=== PATIENT | female | born 1990 | race African-American/Black ===

== ENCOUNTER → 2016-11-22 | Outpatient (CLI) | payer OTHER ==
[2016-11-22 14:06] LABS: ALBUMIN 3.8 GM/DL (3.2-5.2); ALBUMIN/GLOBULIN RATIO 1.09 (1.00-1.93); ALKALINE PHOSPHATASE 53 U/L (45-117); ALT/SGPT 17 U/L (12-78); ANION GAP 10 MEQ/L (8-16); AST/SGOT 11 U/L (15-37); BILIRUBIN,TOTAL 0.5 MG/DL (0.2-1.0); BLOOD UREA NITROGEN 10 MG/DL (7-18); CALCIUM LEVEL 9.5 MG/DL (8.5-10.1); CARBON DIOXIDE LEVEL 26 MEQ/L (21-32); CHLORIDE LEVEL 105 MEQ/L (98-107); CREATININE FOR GFR 0.74 MG/DL (0.55-1.02); GLOMERULAR FILTRATION RATE > 60.0 (>60); GLUCOSE, FASTING 83 MG/DL (70-105); POTASSIUM SERUM 4.6 MEQ/L (3.5-5.1); SODIUM LEVEL 141 MEQ/L (136-145); TOTAL PROTEIN 7.3 GM/DL (6.4-8.2)
[2016-11-22 14:25] LABS: LUTEINIZING HORMONE 2.4 mIU/mL; PROLACTIN 5.3 NG/ML
[2016-11-22 14:27] LABS: FOLLICLE STIMULATING HORMONE 1.7 mIU/mL
== END ==
LOC: M LAB 12:34
PROVIDERS: ATTEND Family Medicine
DX: E28.2 Polycystic ovarian syndrome (principal)

== ENCOUNTER → 2017-05-18 | Outpatient (CLI) | payer OTHER ==
[~2017-05-18] MED LIST: ISOVUE-370 76% 100ML VIAL (Q9967) As Ordered ONE; TRIN1TAB2 PO
--- NOTE | 2017-05-18 13:44 | REP ---
CT IAC WITHOUT CONTRAST: HISTORY: Right pulsatile tinnitus. The internal auditory canals, cochlea, vestibules and semicircular canals are normal in appearance. The ossicles are normal in configuration and position. The scutum and tegmen are intact. The middle ear cavities and mastoid air cells are clear. Minimal mucosal thickening is present in the left ethmoid sinus. The visualized nasopharynx is normal in appearance. IMPRESSION: Normal CT IACs. Signed by Floyd Landrum MD 05/18/2017 01:47 P
== END ==
LOC: M RAD 12:53
PROVIDERS: ATTEND Otolaryngology
DX: H93.A1 Pulsatile tinnitus, right ear (principal)

== ENCOUNTER → 2017-06-07 | Outpatient (CLI) | payer OTHER ==
[~2017-06-07] MED LIST changes: -ISOVUE-370 76% 100ML VIAL (Q9967) As Ordered ONE
--- NOTE | 2017-06-08 08:35 | REP ---
MRI BRAIN WITHOUT AND WITH CONTRAST: HISTORY: Tinnitus. CONTRAST: ProHance 19 mL. There are no areas of abnormal signal intensity in the brain. There is no intraparenchymal hemorrhage, infarct, mass or midline shift. There is no abnormal enhancement. The ventricular system is normal in appearance. There is no extracerebral collection. There is no cerebellopontine angle mass. The inner ear structures are normal in appearance. The mastoid air cells and sinuses are clear. IMPRESSION: There is no intracranial lesion. Signed by Floyd Landrum MD 06/08/2017 08:39 A
== END ==
LOC: M RAD 06-06 08:14
PROVIDERS: ATTEND Otolaryngology
DX: H93.A1 Pulsatile tinnitus, right ear (principal)
CPT/HCPCS: 70553; A9576

== ENCOUNTER 2017-07-13 08:39 | Day surgery (SDC) | payer OTHER ==
[~2017-07-13] VITALS: Ht 167.6 cm; Wt 99.3 kg
[~2017-07-13 08:39] MED LIST changes: +CIPRODEX OTIC SUSP 7.5ML As Ordered ONE
[2017-07-13] MEDS ORDERED: dexameTHASONE 4 MG/ML 1ML VIAL (J1100) IV ONE (09:00)
[2017-07-13] MEDS ORDERED: LR 1,000 ML IV SCH ×3 (09:00→11:45)
[2017-07-13 09:39] LABS: CONTROL LINE UCG INT CTR LINE PRESENT
[2017-07-13] MEDS ORDERED: PHENYLEPHRINE 0.5% NASAL SPRAY 15 ML As Ordered ONE (10:14)
[2017-07-13] MEDS ORDERED: MIDAZOLAM INJ 2 MG/2 ML VIAL (J2250) As Ordered ONE (10:42)
[2017-07-13] MEDS ORDERED: PHENYLephrine HCL 500 MCG/5 ML (100MCG/ML) SYRINGE (J2370) As Ordered ONE (10:43)
[2017-07-13] MEDS ORDERED: fentaNYL 100 MCG/2 ML INJECTION (J3010) As Ordered ONE (10:44)
[2017-07-13] MEDS ORDERED: ONDANSETRON 4MG/2ML VIAL (J2405) As Ordered ONE (10:51)
[2017-07-13] MEDS ORDERED: LIDOCAINE 2% INJ 100 MG/5 ML SDV (FOR ANES.) As Ordered ONE (10:51)
[2017-07-13] MEDS ORDERED: PROPOFOL 200 MG/20 ML VIAL As Ordered ONE (10:51)
[2017-07-13] MEDS ORDERED: HYDROmorphone HCL 2 MG/ML 1ML VIAL (J1170) As Ordered ONE (10:57)
[2017-07-13] MEDS ORDERED: fentaNYL 100 MCG/2 ML INJECTION (J3010) IV PRN (11:45)
[2017-07-13] MEDS ORDERED: ONDANSETRON 4MG/2ML VIAL (J2405) IV PRN (11:45)
[2017-07-13] MEDS ORDERED: HYDROmorphone HCL 1 MG/ML SYRINGE (J1170) IV PRN (11:45)
[2017-07-13] MEDS: PERCOCET 5MG/325MG TAB PO PRN ×2 (11:46→12:24)
[2017-07-13] MEDS ORDERED: KETOROLAC 30 MG/ML VIAL (J1885) As Ordered ONE (13:20)
[2017-07-13] MEDS ORDERED: KETOROLAC 30 MG/ML VIAL (J1885) IV ONE (13:20)
[2017-07-13 14:32] VITALS: BP 128/73
--- NOTE | 2017-08-03 13:59 | RO ---
DATE OF PROCEDURE: 07/13/2017 PREOPERATIVE DIAGNOSES: Eustachian tube dysfunction and adenotonsillar hypertrophy. POSTOPERATIVE DIAGNOSES: Eustachian tube dysfunction and adenotonsillar hypertrophy. PROCEDURE PERFORMED: Right tympanostomy and adenoidectomy. SURGEON: Martin Rosas MD CHIEF II DISPATCHER: ANESTHESIA: General. CLINICAL PREAMBLE: This 26-year-old woman presented to the office with history of chronic right aural fullness for more than 3 months. She was also complaining of pulsatile tinnitus. Flexible nasal endoscopy revealed adenoid hypertrophy. Management options including right tympanostomy tube placement as well as adenoidectomy have been discussed. The patient understood and consented to the procedure. DESCRIPTION OF PROCEDURE: Patient was identified in preoperative holding and brought to the operating room in stable condition. The right ear was marked in the preoperative holding area. Laid in supine position on the operating table, the patient received general anesthesia followed by orotracheal intubation without incident. Patient was prepped and draped in the usual fashion for the procedure. The patient's head was turned to the left side to expose the right ear. Ear speculum was inserted, and cerumen was debrided. The right tympanic membrane was visualized and found to be intact and mildly retracted. Myringotomy incision was made over the anterior inferior quadrant of the tympanic membrane. Right middle ear cleft was suctioned. A 7 mm straight shank tympanotomy tube was inserted. Ciprodex drops were instilled, and a cotton ball was used to occlude the ear canal. At this time, the patient was prepped and draped in the usual fashion for the adenoidectomy. The Paola-Graham mouth gag was inserted and suspended. The red rubber catheter was inserted via the right naris to retract the soft palate. Using a mirror, the hypertrophic adenoid tissue was visualized. Using the Coblator wand set at 7 for Coblation and 3 for coagulation, the hypertrophic adenoid tissue was ablated. Hemostasis was achieved. At the end of the procedure, sponge and instrument counts were correct. No complication was encountered. Estimated blood loss was less than 5 mL. General anesthesia was reversed, and patient was extubated and brought to the recovery room in stable condition. [facility] CENTERGustavo
== END 2017-07-13 14:45 | disposition home or self-care (01) ==
LOC: M SDC 08:39
PROVIDERS: ATTEND Otolaryngology
DX: J35.2 Hypertrophy of adenoids (principal); H69.91 Unspecified Eustachian tube disorder, right ear; H93.A1 Pulsatile tinnitus, right ear; L30.9 Dermatitis, unspecified; Z79.3 Long term (current) use of hormonal contraceptives
CPT/HCPCS: 42831; 69436; 84703; 96374; 96375; J1100; J1170; J1885; J2250; J2370; J2405; J3010